=== PATIENT | male | born 1960 | race Caucasian/White ===

== ENCOUNTER → 2016-11-10 | Outpatient (CLI) | payer MEDICARE, OTHER ==
[~2016-11-10] MED LIST: ASPI81TA82 PO; AZIT250T74 PO; BUPR150T3 PO; CEFU1TAB43 PO; GLUCTAB PO; GUAI600 PO; HYDR-3129 PO; HYDR12.56 PO; HYDR50 PO; LISI-360 PO; METO25 PO; NEXI40CA PO; SIMV20 PO; TRAZ100 PO; ZIPR60CA PO; insulin
== END ==
LOC: CLAB 10:19
PROVIDERS: ATTEND Internal Medicine
DX: Z20.6 Contact with and (suspected) exposure to human immunodeficiency virus [HIV] (principal)
CPT/HCPCS: 36415; 86703

== ENCOUNTER → 2016-12-06 | Outpatient (CLI) | payer MEDICARE, OTHER ==
[2016-12-06 09:50] LABS: AUTOMATED NEUTROPHIL # 6.2 TH/MM3 (1.8-7.7); BASOPHIL % 0.2 % (0.0-2.0); EOSINOPHIL # 0.2 TH/MM3 (0-0.4); EOSINOPHIL % 2.7 % (0.0-4.0); HEMO FLAGS DIFF FINAL; LYMPH % 21.3 % (9.0-44.0); LYMPHOCYTE # 1.9 TH/MM3 (1.0-4.8); MEAN CORPUSCULAR HEMOGLOBIN 29.3 PG (27.0-34.0); MEAN CORPUSCULAR HGB CONC 33.6 % (32.0-36.0); MONO % 6.1 % (0.0-8.0); NEUT % 69.7 % (16.0-70.0); PLATELET COUNT 217 TH/MM3 (150-450); RED CELL DISTRIBUTION WIDTH 13.9 % (11.6-17.2); WHITE BLOOD COUNT 8.9 TH/MM3 (4.0-11.0)
[2016-12-06 09:54] LABS: BACTERIA, URINE RARE /hpf; BLOOD, URINE NEG (NEG); GLUCOSE,URINE NEG (NEG); KETONE, URINE NEG (NEG); MUCUS URINE FEW /lpf (OCC); NITRITE,URINE NEG (NEG); PH, URINE 6.5 (5.0-8.5); URINE COLOR YELLOW (YELLW/STRAW)
[2016-12-06 09:56] LABS: ANION GAP 9 MEQ/L (5-15); AST (GOT) 22 U/L (15-37); BICARBONATE 21.7 MEQ/L (21.0-32.0); BLOOD UREA NITROGEN 13 MG/DL (7-18); CHLORIDE 109 MEQ/L (98-107); GLOMERULAR FILTRATION RATE 50 ML/MIN (>89); GLUCOSE,FASTING 129 MG/DL (74-99); SODIUM (NA) 140 MEQ/L (136-145)
[2016-12-06 09:59] LABS: ALKALINE PHOSPHATASE 96 U/L (45-117); ALT (GPT) 38 U/L (12-78); HDL CHOLESTEROL 43.5 MG/DL (40.0-60.0); LDL CHOLESTEROL 115 MG/DL (0-99); TOTAL BILIRUBIN ADULT 0.4 MG/DL (0.2-1.0)
[2016-12-06 11:26] LABS: HEMOGLOBIN A1a 0.9 %; HEMOGLOBIN Ao 83.7 %; HEMOGLOBIN LA1C 2.3 %; HEMOGLOBIN P3 4.2 %
== END ==
LOC: CLAB 08:56
PROVIDERS: ATTEND Internal Medicine
DX: E11.8 Type 2 diabetes mellitus with unspecified complications (principal); E78.00 Pure hypercholesterolemia, unspecified; L97.909 Non-pressure chronic ulcer of unspecified part of unspecified lower leg with unspecified severity; Z12.5 Encounter for screening for malignant neoplasm of prostate
CPT/HCPCS: 36415; 80053; 80061; 81001; 83036; 85025; G0103

== ENCOUNTER → 2017-04-02 | Outpatient (CLI) | payer MEDICARE, OTHER ==
[2017-04-02 08:25] LABS: BLOOD, URINE NEG (NEG); GLUCOSE,URINE NEG (NEG); HYALINE CAST, URINE 1 /lpf (RARE); KETONE, URINE NEG (NEG); MUCUS URINE FEW /lpf (OCC); NITRITE,URINE NEG (NEG); PH, URINE 5.5 (5.0-8.5); URINE COLOR YELLOW (YELLW/STRAW)
[2017-04-02 08:35] LABS: ALKALINE PHOSPHATASE 99 U/L (45-117); ALT (GPT) 54 U/L (12-78); ANION GAP 10 MEQ/L (5-15); AST (GOT) 42 U/L (15-37); BICARBONATE 24.2 MEQ/L (21.0-32.0); BLOOD UREA NITROGEN 13 MG/DL (7-18); CHLORIDE 109 MEQ/L (98-107); GLOMERULAR FILTRATION RATE 56 ML/MIN (>89); GLUCOSE,FASTING 141 MG/DL (74-99); HDL CHOLESTEROL 26.7 MG/DL (40.0-60.0); LDL CHOLESTEROL 45 MG/DL (0-99); POTASSIUM 3.8 MEQ/L (3.5-5.1); SODIUM (NA) 143 MEQ/L (136-145); TOTAL BILIRUBIN ADULT 0.4 MG/DL (0.2-1.0)
[2017-04-03 16:08] LABS: HEMOGLOBIN A1a 1.4 %; HEMOGLOBIN A1b 2.2 %; HEMOGLOBIN Ao 82.6 %; HEMOGLOBIN LA1C 1.8 %; HEMOGLOBIN P3 4.2 %
== END ==
LOC: CLAB 07:10
PROVIDERS: ATTEND Internal Medicine
DX: E78.00 Pure hypercholesterolemia, unspecified (principal); E11.21 Type 2 diabetes mellitus with diabetic nephropathy
CPT/HCPCS: 36415; 80053; 80061; 81001; 83036

== ENCOUNTER → 2017-07-11 | Outpatient (CLI) | payer MEDICARE, OTHER ==
[2017-07-11 09:06] LABS: AUTOMATED NEUTROPHIL # 6.8 TH/MM3 (1.8-7.7); BASOPHIL % 0.3 % (0.0-2.0); EOSINOPHIL # 0.3 TH/MM3 (0-0.4); EOSINOPHIL % 2.6 % (0.0-4.0); HEMATOCRIT 42.3 % (39.0-51.0); HEMO FLAGS DIFF FINAL; LYMPH % 22.1 % (9.0-44.0); LYMPHOCYTE # 2.2 TH/MM3 (1.0-4.8); MEAN CORPUSCULAR HEMOGLOBIN 29.9 PG (27.0-34.0); MEAN CORPUSCULAR HGB CONC 33.6 % (32.0-36.0); MONO % 6.6 % (0.0-8.0); NEUT % 68.4 % (16.0-70.0); PLATELET COUNT 201 TH/MM3 (150-450); RED BLOOD COUNT 4.76 MIL/MM3 (4.50-5.90); RED CELL DISTRIBUTION WIDTH 13.8 % (11.6-17.2)
[2017-07-11 09:06] LABS: BLOOD, URINE NEG (NEG); GLUCOSE,URINE 1000 mg/dL (NEG); KETONE, URINE NEG (NEG); NITRITE,URINE NEG (NEG); PH, URINE 5.5 (5.0-8.5); URINE COLOR LIGHT-YELLOW (YELLW/STRAW)
[2017-07-11 09:08] LABS: COMMENT (UR) CULT NOT INDICATED; CULTURE IF INDICATED CULT NOT INDICATED
[2017-07-11 10:58] LABS: ALKALINE PHOSPHATASE 93 U/L (45-117); ALT (GPT) 27 U/L (12-78); HDL CHOLESTEROL 36.8 MG/DL (40.0-60.0); LDL CHOLESTEROL 78 MG/DL (0-99); TOTAL BILIRUBIN ADULT 0.7 MG/DL (0.2-1.0)
[2017-07-11 12:03] LABS: HEMOGLOBIN A1a 1.4 %; HEMOGLOBIN Ao 83.2 %; HEMOGLOBIN LA1C 2.1 %
[2017-07-11 12:32] LABS: BLOOD UREA NITROGEN 21 MG/DL (7-18); GLOMERULAR FILTRATION RATE 46 ML/MIN (>89); GLUCOSE,FASTING 116 MG/DL (74-99)
[2017-07-11 12:33] LABS: ANION GAP 7 MEQ/L (5-15); AST (GOT) 29 U/L (15-37); BICARBONATE 24.8 MEQ/L (21.0-32.0); CHLORIDE 106 MEQ/L (98-107); POTASSIUM 4.3 MEQ/L (3.5-5.1); SODIUM (NA) 138 MEQ/L (136-145)
== END ==
LOC: CLAB 08:14
PROVIDERS: ATTEND Internal Medicine
DX: I10 Essential (primary) hypertension (principal); E78.00 Pure hypercholesterolemia, unspecified; E11.21 Type 2 diabetes mellitus with diabetic nephropathy
CPT/HCPCS: 36415; 80053; 80061; 81001; 83036; 85025

== ENCOUNTER → 2017-09-19 | Outpatient (CLI) | payer MEDICARE, OTHER ==
[2017-09-19 09:09] LABS: AUTOMATED NEUTROPHIL # 6.6 TH/MM3 (1.8-7.7); BASOPHIL % 0.3 % (0.0-2.0); EOSINOPHIL # 0.3 TH/MM3 (0-0.4); EOSINOPHIL % 2.8 % (0.0-4.0); HEMATOCRIT 43.3 % (39.0-51.0); HEMO FLAGS DIFF FINAL; LYMPH % 22.6 % (9.0-44.0); LYMPHOCYTE # 2.2 TH/MM3 (1.0-4.8); MEAN CELL VOLUME 88.8 FL (80.0-100.0); MEAN CORPUSCULAR HEMOGLOBIN 30.2 PG (27.0-34.0); MONO % 6.7 % (0.0-8.0); NEUT % 67.6 % (16.0-70.0); PLATELET COUNT 220 TH/MM3 (150-450); RED BLOOD COUNT 4.87 MIL/MM3 (4.50-5.90); RED CELL DISTRIBUTION WIDTH 13.8 % (11.6-17.2); WHITE BLOOD COUNT 9.8 TH/MM3 (4.0-11.0)
[2017-09-19 09:23] LABS: ALT (GPT) 32 U/L (12-78); ANION GAP 9 MEQ/L (5-15); AST (GOT) 17 U/L (15-37); BICARBONATE 24.1 MEQ/L (21.0-32.0); BLOOD UREA NITROGEN 21 MG/DL (7-18); CHLORIDE 105 MEQ/L (98-107); GLOMERULAR FILTRATION RATE 44 ML/MIN (>89); GLUCOSE,FASTING 182 MG/DL (74-99); POTASSIUM 4.1 MEQ/L (3.5-5.1); SODIUM (NA) 138 MEQ/L (136-145)
[2017-09-19 09:37] LABS: ALKALINE PHOSPHATASE 103 U/L (45-117); HDL CHOLESTEROL 35.7 MG/DL (40.0-60.0); LDL CHOLESTEROL 65 MG/DL (0-99); TOTAL BILIRUBIN ADULT 0.5 MG/DL (0.2-1.0)
[2017-09-19 10:17] LABS: BLOOD, URINE NEG (NEG); GLUCOSE,URINE 1000 mg/dL (NEG); KETONE, URINE NEG (NEG); MUCUS URINE FEW /lpf (OCC); NITRITE,URINE NEG (NEG); URINE COLOR LIGHT-YELLOW (YELLW/STRAW)
[2017-09-19 12:12] LABS: HEMOGLOBIN A1a 1.3 %; HEMOGLOBIN A1b 2.2 %; HEMOGLOBIN Ao 81.4 %; HEMOGLOBIN LA1C 2.7 %; HEMOGLOBIN P3 4.6 %
== END ==
LOC: CLAB 07:55
PROVIDERS: ATTEND Internal Medicine
DX: I10 Essential (primary) hypertension (principal); E11.21 Type 2 diabetes mellitus with diabetic nephropathy; E78.00 Pure hypercholesterolemia, unspecified
CPT/HCPCS: 36415; 80053; 80061; 81001; 83036; 85025

== ENCOUNTER 2017-11-23 13:51 | Emergency (ER) | payer MEDICARE, OTHER ==
[~2017-11-23] VITALS: Ht 167.6 cm; Wt 100.0 kg
[2017-11-23] MEDS ORDERED: IOHEXOL 350 MG/ML 10 ML VIAL (for RAD DIAG) IVCONTRAST ONE (13:52)
[2017-11-23 13:53] VITALS: BP 176/103; PULSE 111; RESP 16; TEMP 98.4; O2SAT 97
[2017-11-23] MEDS ORDERED: SODIUM CHLOR 0.9% 1000 ML INJ 1,000 ML IV SCH (16:43)
[2017-11-23] MEDS ORDERED: MORPHINE SULFATE 2 MG/ML INJ IV PUSH ONE (16:45)
[2017-11-23] MEDS ORDERED: PANTOPRAZOLE SODIUM 40 MG VIAL IVP ONE (16:45)
[2017-11-23] MEDS ORDERED: ONDANSETRON HCL 4 MG/2 ML VIAL IVP ONE (16:45)
[2017-11-23] MEDS ORDERED: SODIUM CHLORIDE 0.9% FLUSH 10 ML FLUSH IV FLUSH PRN (16:45)
--- NOTE | 2017-11-23 16:47 | PD ---
HPI Chief Complaint: GI Complaint Time Seen by Provider: 16:33 Travel History International Travel<30 days: No Contact w/Intl Traveler<30days: No Traveled to known affect area: No History of Present Illness HPI 61-year-old male presents for evaluation of nausea, vomiting, abdominal pain, diarrhea. Symptoms started 3 days ago. He reports intermittent sharp pain in his left lower quadrant which radiates into the back. No obvious aggravating or alleviating factors. He reports nausea and one episode of vomiting. He reports multiple episodes of mucousy diarrhea on a daily basis. He reports that obvious bright red blood per rectum on one of the days however none since. He endorses chills and diaphoresis as well. He denies cough, congestion, sore throat, rash or recent travel. Denies any recent antibiotic use. He is not on any blood thinning medications. He reports that he had a colonoscopy 1 year ago with matrix inspector Dr. Sheikh which he believes was normal. His primary care physician is Dr. Saldivar. No other complaints at this time. PFSH Past Medical History Arthritis: No Asthma: Yes Blood Disorders: No Anxiety: Yes Depression: Yes Heart Rhythm Problems: No Cancer: No Cardiac Catheterization: No Cardiovascular Problems: Yes High Cholesterol: Yes Chest Pain: Yes Congestive Heart Failure: No COPD: No Cerebrovascular Accident: Yes (TIA ) Diabetes: Yes Diminished Hearing: No Endocrine: Yes GERD: Yes Glaucoma: Yes Genitourinary: Yes Headaches: No Hepatitis: No Hiatal Hernia: No Hypertension: Yes Immune Disorder: No Kidney Stones: No Musculoskeletal: Yes Neurologic: Yes Psychiatric: Yes Reproductive: No Respiratory: Yes Migraines: No Myocardial Infarction: No Renal Failure: No Seizures: Yes Sleep Apnea: No Thyroid Disease: No Ulcer: No Past Surgical History Abdominal Surgery: No AICD: No Appendectomy: No Arteriovenous Shunt: No Cardiac Surgery: No Cholecystectomy: No Coronary Artery Bypass Graft: No Ear Surgery: No Endocrine Surgery: No Eye Surgery: No Genitourinary Surgery: No Gynecologic Surgery: Yes (hernia repair) Insulin Pump: No Joint Replacement: No Oral Surgery: No Pacemaker: No Thoracic Surgery: No Social History Alcohol Use: Yes (SOCIAL) Tobacco Use: No Substance Use: No Allergies-Medications (Allergen,Severity, Reaction): Coded Allergies: No Known Allergies (Verified , 10/11/15) Reported Meds & Prescriptions Reported Meds & Active Scripts Active Zofran Odt (Ondansetron Odt) 4 Mg Tab 4 Mg SL Q6HR PRN Mucinex 600 Mg Tab (Guaifenesin) 600 Mg Tabcr 600 Mg PO BID 14 Days Zithromax (Azithromycin) 250 Mg Tab 500 Mg PO DAILY 5 Days Ceftin 500 Mg Tab (Cefuroxime Axetil) 500 Mg Tab 500 Mg PO Q12HR 5 Days Vistaril (Hydroxyzine Pamoate) 50 Mg Cap 50 Mg PO Q6H Reported [insulin] [place] 10-325 mg (Hydrocodone-Acetaminophen 10-325 mg) 10 Mg/325 Mg Tab 1 Tab PO BID PRN Hydrochlorothiazide (Miscellaneous Medication) 12.5 Mg Cap 12.5 Mg PO DAILY Ziprasidone Hcl 60 Mg Cap 60 Mg PO HS Metoprolol Tartrate 25 mg (Metoprolol Tartrate) 25 Mg Tab 25 Mg PO BID Aspir-81 (Aspirin) 81 Mg Tab 81 Mg PO DAILY Glucophage XR 24 HR (Metformin HCl) 500 Mg Tab 500 Mg PO BID Trazodone HCl 100 Mg Tab 100 Mg PO DAILY Bupropion Hcl Xl (Bupropion HCl) 150 Mg Tab 300 Mg PO DAILY Zocor (Simvastatin) 20 Mg Tab 20 Mg PO HS Nexium (Esomeprazole Magnesium) 40 Mg Cap 40 Mg PO DAILY Lisinopril 10 mg (Lisinopril) 10 Mg Tab 10 Mg PO BID Review of Systems Except as stated in HPI: all other systems reviewed are Neg Physical Exam Narrative GENERAL: Well-developed well-nourished male in no acute distress SKIN: Warm and dry. HEAD: Atraumatic. Normocephalic. EYES: Pupils equal and round. No scleral icterus. No injection or drainage. ENT: No nasal bleeding or discharge. Mucous membranes pink and moist. NECK: Trachea midline. No JVD. CARDIOVASCULAR: Regular rate and rhythm. No murmur appreciated. RESPIRATORY: No accessory muscle use. Clear to auscultation. Breath sounds equal bilaterally. GASTROINTESTINAL: Abdomen soft, focal left lower quadrant and left periumbilical tenderness to palpation without guarding. There is no CVA tenderness. Rectal examination Hemoccult negative however there is no obvious stool in the rectal vault. MUSCULOSKELETAL: No obvious deformities. No clubbing. No cyanosis. No edema. NEUROLOGICAL: Awake and alert. No obvious cranial nerve deficits. Motor grossly within normal limits. Normal speech. Data Data Last Documented VS Vital Signs Date Time Temp Pulse Resp B/P (MAP) Pulse Ox O2 Delivery O2 Flow Rate FiO2 11/23/17 21:59 11/23/17 19:32 20 11/23/17 17:23 98 98 Room Air 11/23/17 13:53 98.4 Orders Orders Complete Blood Count With Diff (11/23/17 16:43) Comprehensive Metabolic Panel (11/23/17 16:43) Lipase (11/23/17 16:43) Urinalysis - C+S If Indicated (11/23/17 16:43) Ct Abd/Pel W Iv Contrast(Rout) (11/23/17 16:43) Iv Access Insert/Monitor (11/23/17 16:43) Ecg Monitoring (11/23/17 16:43) Oximetry (11/23/17 16:43) Ondansetron Inj (Zofran Inj) (11/23/17 16:45) Sodium Chlor 0.9% 1000 Ml Inj (Ns 1000 M (11/23/17 16:43) Sodium Chloride 0.9% Flush (Ns Flush) (11/23/17 16:45) Pantoprazole Inj (Protonix Inj) (11/23/17 16:45) Morphine Inj (Morphine Inj) (11/23/17 16:45) Iohexol 350 Inj (Omnipaque 350 Inj) (11/23/17 13:52) Ed Discharge Order (11/23/17 21:27) Labs Laboratory Tests Test 11/23/17 16:52 11/23/17 17:50 11/23/17 19:23 White Blood Count 14.1 TH/MM3 Red Blood Count 5.02 MIL/MM3 Hemoglobin 14.8 GM/DL Hematocrit 43.8 % Mean Corpuscular Volume 87.1 FL Mean Corpuscular Hemoglobin 29.4 PG Mean Corpuscular Hemoglobin Concent 33.8 % Red Cell Distribution Width 14.1 % Platelet Count 280 TH/MM3 Mean Platelet Volume 8.7 FL Neutrophils (%) (Auto) 72.8 % Lymphocytes (%) (Auto) 14.3 % Monocytes (%) (Auto) 11.0 % Eosinophils (%) (Auto) 1.7 % Basophils (%) (Auto) 0.2 % Neutrophils # (Auto) 10.3 TH/MM3 Lymphocytes # (Auto) 2.0 TH/MM3 Monocytes # (Auto) 1.6 TH/MM3 Eosinophils # (Auto) 0.2 TH/MM3 Basophils # (Auto) 0.0 TH/MM3 CBC Comment DIFF FINAL Differential Comment Urine Color YELLOW Urine Turbidity CLEAR Urine pH 5.5 Urine Specific [place] 1.024 Urine Protein TRACE mg/dL Urine Glucose (UA) NEG mg/dL Urine Ketones TRACE mg/dL Urine Occult Blood NEG Urine Nitrite NEG Urine Bilirubin NEG Urine Urobilinogen LESS THAN 2.0 MG/DL Urine Leukocyte Esterase NEG Urine WBC 5 /hpf Urine Hyaline Casts 1 /lpf Urine Mucus FEW /lpf Microscopic Urinalysis Comment CULT NOT INDICATED Blood Urea Nitrogen 15 MG/DL Creatinine 1.20 MG/DL Random Glucose 109 MG/DL Total Protein 6.9 GM/DL Albumin 3.4 GM/DL Calcium Level 8.4 MG/DL Alkaline Phosphatase 92 U/L Aspartate Amino Transf (AST/SGOT) 15 U/L Alanine Aminotransferase (ALT/SGPT) 22 U/L Total Bilirubin 0.6 MG/DL Sodium Level 138 MEQ/L Potassium Level 3.7 MEQ/L Chloride Level 104 MEQ/L Carbon Dioxide Level 26.0 MEQ/L Anion Gap 8 MEQ/L Estimat Glomerular Filtration Rate 63 ML/MIN Lipase 411 U/L MDM Medical Decision Making Medical Screen Exam Complete: Yes Emergency Medical Condition: Yes Medical Record Reviewed: Yes Differential Diagnosis Diverticulitis, colitis, gastroenteritis, ureteral stone, gastritis, mesenteric ischemia Narrative Course 57-year-old male with 3 days of left lower quadrant abdominal pain, chills and diaphoresis, nausea, diarrhea. The patient was given symptomatic treatment, lab work, CT imaging was ordered. At the end of my shift the patient was signed out pending CT imaging. Scripts Ondansetron Odt (Zofran Odt) 4 Mg Tab 4 MG SL Q6HR Y for Nausea/Vomiting, #15 TAB 0 Refills Prov: Caren Anaya 11/23/17 Sunil Obrien Nov 23, 2017 16:47
[2017-11-23 17:21] LABS: AUTOMATED NEUTROPHIL # 10.3 TH/MM3 (1.8-7.7); BASOPHIL % 0.2 % (0.0-2.0); EOSINOPHIL # 0.2 TH/MM3 (0-0.4); EOSINOPHIL % 1.7 % (0.0-4.0); HEMATOCRIT 43.8 % (39.0-51.0); HEMOGLOBIN 14.8 GM/DL (13.0-17.0); LYMPH % 14.3 % (9.0-44.0); MEAN CELL VOLUME 87.1 FL (80.0-100.0); MEAN CORPUSCULAR HEMOGLOBIN 29.4 PG (27.0-34.0); MEAN CORPUSCULAR HGB CONC 33.8 % (32.0-36.0); MEAN PLATELET VOLUME 8.7 FL (7.0-11.0); MONOCYTE # 1.6 TH/MM3 (0-0.9); NEUT % 72.8 % (16.0-70.0); PLATELET COUNT 280 TH/MM3 (150-450); RED BLOOD COUNT 5.02 MIL/MM3 (4.50-5.90); RED CELL DISTRIBUTION WIDTH 14.1 % (11.6-17.2); WHITE BLOOD COUNT 14.1 TH/MM3 (4.0-11.0)
[2017-11-23 17:23] VITALS: PULSE 98; RESP 16; O2SAT 98
[2017-11-23 18:13] LABS: BILIRUBIN, URINE NEG (NEG); BLOOD, URINE NEG (NEG); GLUCOSE,URINE NEG (NEG); HYALINE CAST, URINE 1 /lpf (RARE); KETONE, URINE TRACE mg/dL (NEG); MUCUS URINE FEW /lpf (OCC); NITRITE,URINE NEG (NEG); PH, URINE 5.5 (5.0-8.5); URINE COLOR YELLOW (YELLW/STRAW); URINE LEUKOCYTE ESTERASE NEG (NEG)
[2017-11-23 19:32] VITALS: RESP 20
[2017-11-23 20:40] LABS: ALBUMIN 3.4 GM/DL (3.4-5.0); ALT (GPT) 22 U/L (12-78); AST (GOT) 15 U/L (15-37); BLOOD UREA NITROGEN 15 MG/DL (7-18); CALCIUM 8.4 MG/DL (8.5-10.1); CHLORIDE 104 MEQ/L (98-107); GLOMERULAR FILTRATION RATE 63 ML/MIN (>89); GLUCOSE,RANDOM 109 MG/DL (74-106); SODIUM (NA) 138 MEQ/L (136-145)
[2017-11-23 20:43] LABS: ALKALINE PHOSPHATASE 92 U/L (45-117); TOTAL BILIRUBIN ADULT 0.6 MG/DL (0.2-1.0); TOTAL PROTEIN 6.9 GM/DL (6.4-8.2)
--- NOTE | 2017-11-23 21:11 | RADRPT ---
EXAM DATE/TIME: 11/23/2017 20:55 [facility] COMPARISON: CT ABDOMEN & PELVIS W CONTRAST, January 21, 2012, 19:28. INDICATIONS : Patient complains of left abdominal pain with nausea and vomiting. IV CONTRAST: 90 cc Omnipaque 350 (iohexol) IV ORAL CONTRAST: No oral contrast ingested. RADIATION DOSE: 16.67 CTDIvol (mGy) MEDICAL HISTORY : Cardiovascular disease. Cerebrovascular disease. Hypertension.reflux,diabetic SURGICAL HISTORY : hernia repair ENCOUNTER: Initial ACUITY: 3 days PAIN SCALE: 4/10 LOCATION: Left abdomen TECHNIQUE: Volumetric scanning of the abdomen and pelvis was performed. Using automated exposure control and ad justment of the mA and/or kV according to patient size, radiation dose was kept as low as reasonably achievable to obtain optimal diagnostic quality images. DICOM format image data is available electro nically for review and comparison. FINDINGS: LOWER LUNGS: The visualized lower lungs are clear. LIVER: Homogeneous density without lesion. There is no dilation of the biliary tree. No calcified [place]ston es. SPLEEN: Normal size without lesion. PANCREAS: Within normal limits. KIDNEYS: Normal in size and shape. There is no mass, stone or hydronephrosis. ADRENAL GLANDS: Within normal limits. VASCULAR: There is no aortic aneurysm. BOWEL/MESENTERY: The stomach, small bowel, and colon demonstrate no acute abnormality. There is no free intraperitone al air or fluid. No inflammatory changes ABDOMINAL WALL: Within normal limits. RETROPERITONEUM: There is no lymphadenopathy. BLADDER: No wall thickening or mass. REPRODUCTIVE: Within normal limits. INGUINAL: There is no lymphadenopathy or hernia. MUSCULOSKELETAL: Stable left-sided rib fractures. Mild degenerative changes. No new or significant changes compared to the prior examination. CONCLUSION: Stable and unremarkable CT abdomen/pelvis compared to 2011. Kishan Mayer MD on November 23, 2017 at 21:06 Board Certified Radiologist. This report was verified electronically.
[2017-11-23] MEDS ORDERED: ZOFR4TAB3 SL (21:26)
--- NOTE | 2017-11-23 21:27 | PD ---
Physical Exam Date Seen by Provider: Nov 23, 2017 Time Seen by Provider: 21:22 Narrative For full history and physical examination please see previous providers note. I assumed care of this patient change his shift, at that time chemistry and CT of the abdomen and pelvis are pending. Data Data Last Documented VS Vital Signs Date Time Temp Pulse Resp B/P (MAP) Pulse Ox O2 Delivery O2 Flow Rate FiO2 11/23/17 19:32 20 11/23/17 17:23 98 98 Room Air 11/23/17 13:53 98.4 Orders Orders Complete Blood Count With Diff (11/23/17 16:43) Comprehensive Metabolic Panel (11/23/17 16:43) Lipase (11/23/17 16:43) Urinalysis - C+S If Indicated (11/23/17 16:43) Ct Abd/Pel W Iv Contrast(Rout) (11/23/17 16:43) Iv Access Insert/Monitor (11/23/17 16:43) Ecg Monitoring (11/23/17 16:43) Oximetry (11/23/17 16:43) Ondansetron Inj (Zofran Inj) (11/23/17 16:45) Sodium Chlor 0.9% 1000 Ml Inj (Ns 1000 M (11/23/17 16:43) Sodium Chloride 0.9% Flush (Ns Flush) (11/23/17 16:45) Pantoprazole Inj (Protonix Inj) (11/23/17 16:45) Morphine Inj (Morphine Inj) (11/23/17 16:45) Iohexol 350 Inj (Omnipaque 350 Inj) (11/23/17 13:52) Labs Laboratory Tests Test 11/23/17 16:52 11/23/17 17:50 11/23/17 19:23 White Blood Count 14.1 TH/MM3 Red Blood Count 5.02 MIL/MM3 Hemoglobin 14.8 GM/DL Hematocrit 43.8 % Mean Corpuscular Volume 87.1 FL Mean Corpuscular Hemoglobin 29.4 PG Mean Corpuscular Hemoglobin Concent 33.8 % Red Cell Distribution Width 14.1 % Platelet Count 280 TH/MM3 Mean Platelet Volume 8.7 FL Neutrophils (%) (Auto) 72.8 % Lymphocytes (%) (Auto) 14.3 % Monocytes (%) (Auto) 11.0 % Eosinophils (%) (Auto) 1.7 % Basophils (%) (Auto) 0.2 % Neutrophils # (Auto) 10.3 TH/MM3 Lymphocytes # (Auto) 2.0 TH/MM3 Monocytes # (Auto) 1.6 TH/MM3 Eosinophils # (Auto) 0.2 TH/MM3 Basophils # (Auto) 0.0 TH/MM3 CBC Comment DIFF FINAL Differential Comment Urine Color YELLOW Urine Turbidity CLEAR Urine pH 5.5 Urine Specific [place] 1.024 Urine Protein TRACE mg/dL Urine Glucose (UA) NEG mg/dL Urine Ketones TRACE mg/dL Urine Occult Blood NEG Urine Nitrite NEG Urine Bilirubin NEG Urine Urobilinogen LESS THAN 2.0 MG/DL Urine Leukocyte Esterase NEG Urine WBC 5 /hpf Urine Hyaline Casts 1 /lpf Urine Mucus FEW /lpf Microscopic Urinalysis Comment CULT NOT INDICATED Blood Urea Nitrogen 15 MG/DL Creatinine 1.20 MG/DL Random Glucose 109 MG/DL Total Protein 6.9 GM/DL Albumin 3.4 GM/DL Calcium Level 8.4 MG/DL Alkaline Phosphatase 92 U/L Aspartate Amino Transf (AST/SGOT) 15 U/L Alanine Aminotransferase (ALT/SGPT) 22 U/L Total Bilirubin 0.6 MG/DL Sodium Level 138 MEQ/L Potassium Level 3.7 MEQ/L Chloride Level 104 MEQ/L Carbon Dioxide Level 26.0 MEQ/L Anion Gap 8 MEQ/L Estimat Glomerular Filtration Rate 63 ML/MIN Lipase 411 U/L [facility] Medical Record Reviewed: Yes Supervised Visit with CHRISTINA: No Interpretation(s) Laboratory Tests Test 11/23/17 16:52 11/23/17 17:50 11/23/17 19:23 White Blood Count 14.1 TH/MM3 Red Blood Count 5.02 MIL/MM3 Hemoglobin 14.8 GM/DL Hematocrit 43.8 % Mean Corpuscular Volume 87.1 FL Mean Corpuscular Hemoglobin 29.4 PG Mean Corpuscular Hemoglobin Concent 33.8 % Red Cell Distribution Width 14.1 % Platelet Count 280 TH/MM3 Mean Platelet Volume 8.7 FL Neutrophils (%) (Auto) 72.8 % Lymphocytes (%) (Auto) 14.3 % Monocytes (%) (Auto) 11.0 % Eosinophils (%) (Auto) 1.7 % Basophils (%) (Auto) 0.2 % Neutrophils # (Auto) 10.3 TH/MM3 Lymphocytes # (Auto) 2.0 TH/MM3 Monocytes # (Auto) 1.6 TH/MM3 Eosinophils # (Auto) 0.2 TH/MM3 Basophils # (Auto) 0.0 TH/MM3 CBC Comment DIFF FINAL Differential Comment Urine Color YELLOW Urine Turbidity CLEAR Urine pH 5.5 Urine Specific [place] 1.024 Urine Protein TRACE mg/dL Urine Glucose (UA) NEG mg/dL Urine Ketones TRACE mg/dL Urine Occult Blood NEG Urine Nitrite NEG Urine Bilirubin NEG Urine Urobilinogen LESS THAN 2.0 MG/DL Urine Leukocyte Esterase NEG Urine WBC 5 /hpf Urine Hyaline Casts 1 /lpf Urine Mucus FEW /lpf Microscopic Urinalysis Comment CULT NOT INDICATED Blood Urea Nitrogen 15 MG/DL Creatinine 1.20 MG/DL Random Glucose 109 MG/DL Total Protein 6.9 GM/DL Albumin 3.4 GM/DL Calcium Level 8.4 MG/DL Alkaline Phosphatase 92 U/L Aspartate Amino Transf (AST/SGOT) 15 U/L Alanine Aminotransferase (ALT/SGPT) 22 U/L Total Bilirubin 0.6 MG/DL Sodium Level 138 MEQ/L Potassium Level 3.7 MEQ/L Chloride Level 104 MEQ/L Carbon Dioxide Level 26.0 MEQ/L Anion Gap 8 MEQ/L Estimat Glomerular Filtration Rate 63 ML/MIN Lipase 411 U/L Vital Signs Date Time Temp Pulse Resp B/P (MAP) Pulse Ox O2 Delivery O2 Flow Rate FiO2 11/23/17 19:32 20 11/23/17 17:23 98 16 98 Room Air 11/23/17 13:53 98.4 111 16 176/103 (127) 97 Differential Diagnosis Laboratory Tests Test 11/23/17 16:52 11/23/17 17:50 11/23/17 19:23 White Blood Count 14.1 TH/MM3 Red Blood Count 5.02 MIL/MM3 Hemoglobin 14.8 GM/DL Hematocrit 43.8 % Mean Corpuscular Volume 87.1 FL Mean Corpuscular Hemoglobin 29.4 PG Mean Corpuscular Hemoglobin Concent 33.8 % Red Cell Distribution Width 14.1 % Platelet Count 280 TH/MM3 Mean Platelet Volume 8.7 FL Neutrophils (%) (Auto) 72.8 % Lymphocytes (%) (Auto) 14.3 % Monocytes (%) (Auto) 11.0 % Eosinophils (%) (Auto) 1.7 % Basophils (%) (Auto) 0.2 % Neutrophils # (Auto) 10.3 TH/MM3 Lymphocytes # (Auto) 2.0 TH/MM3 Monocytes # (Auto) 1.6 TH/MM3 Eosinophils # (Auto) 0.2 TH/MM3 Basophils # (Auto) 0.0 TH/MM3 CBC Comment DIFF FINAL Differential Comment Urine Color YELLOW Urine Turbidity CLEAR Urine pH 5.5 Urine Specific [place] 1.024 Urine Protein TRACE mg/dL Urine Glucose (UA) NEG mg/dL Urine Ketones TRACE mg/dL Urine Occult Blood NEG Urine Nitrite NEG Urine Bilirubin NEG Urine Urobilinogen LESS THAN 2.0 MG/DL Urine Leukocyte Esterase NEG Urine WBC 5 /hpf Urine Hyaline Casts 1 /lpf Urine Mucus FEW /lpf Microscopic Urinalysis Comment CULT NOT INDICATED Blood Urea Nitrogen 15 MG/DL Creatinine 1.20 MG/DL Random Glucose 109 MG/DL Total Protein 6.9 GM/DL Albumin 3.4 GM/DL Calcium Level 8.4 MG/DL Alkaline Phosphatase 92 U/L Aspartate Amino Transf (AST/SGOT) 15 U/L Alanine Aminotransferase (ALT/SGPT) 22 U/L Total Bilirubin 0.6 MG/DL Sodium Level 138 MEQ/L Potassium Level 3.7 MEQ/L Chloride Level 104 MEQ/L Carbon Dioxide Level 26.0 MEQ/L Anion Gap 8 MEQ/L Estimat Glomerular Filtration Rate 63 ML/MIN Lipase 411 U/L Vital Signs Date Time Temp Pulse Resp B/P (MAP) Pulse Ox O2 Delivery O2 Flow Rate FiO2 11/23/17 19:32 20 11/23/17 17:23 98 16 98 Room Air 11/23/17 13:53 98.4 111 16 176/103 (127) 97 Narrative Course Patient is a 57-year-old male that presented to the emergency department for evaluation of GI symptoms. Patient is well appearing, he is resting comfortably on my exam. CT scan of the abdomen and pelvis which was read by the radiologist shows no acute abnormality. CBC with a slightly elevated WBCs at 14.1 likely stress related secondary to vomiting. Chemistry with no acute abnormalities. Lipase is 411. Urinalysis unremarkable. Patient is resting comfortably, he has no complaints. Symptoms are likely related to a gastroenteritis, patient will be discharged home with oral Zofran. He is encouraged to maintain a bland, low-residue diet, increasing as tolerated. He was encouraged to increase oral fluid intake. He was advised to follow-up with her primary doctor or return to emergency department immediately for any new or worsening symptoms. Patient verbalized understanding of these instructions. Patient stable for discharge. Diagnosis Primary Impression: Gastroenteritis Referrals: Primary Care Physician Patient Instructions: Diet for Stomach Ulcers and Gastritis (ED), Gastroenteritis (ED), General Instructions Additional Instruction: Maintain a bland, easy to digest diet, increasing as tolerated Maintain adequate fluid intake Take medications as needed and as directed Follow-up with your primary doctor Return to emergency department for any new worsening symptoms Med/Other Pt SpecificInfo: Prescription(s) given Scripts Ondansetron Odt (Zofran Odt) 4 Mg Tab 4 MG SL Q6HR Y for Nausea/Vomiting, #15 TAB 0 Refills Prov: Caren Anaya 11/23/17 Disposition: 01 DISCHARGE HOME Condition: Stable Caren Anaya Nov 23, 2017 21:27
== END 2017-11-23 22:00 | disposition home or self-care (01) ==
LOC: NEPD 13:51
DX: K52.9 Noninfective gastroenteritis and colitis, unspecified (principal); J45.909 Unspecified asthma, uncomplicated; F41.9 Anxiety disorder, unspecified; F32.9 Major depressive disorder, single episode, unspecified; E78.00 Pure hypercholesterolemia, unspecified; E11.9 Type 2 diabetes mellitus without complications; K21.9 Gastro-esophageal reflux disease without esophagitis; I10 Essential (primary) hypertension; Z87.820 Personal history of traumatic brain injury
CPT/HCPCS: 74177; 80053; 81001; 83690; 85025; 96361; 96374; 96375; 99285; C9113; J2270; J2405; J7030; Q9967

== ENCOUNTER → 2018-01-17 | Outpatient (CLI) | payer MEDICARE, OTHER ==
[~2018-01-17] MED LIST changes: +ZOFR4TAB3 SL
[2018-01-17 10:14] LABS: AUTOMATED NEUTROPHIL # 6.4 TH/MM3 (1.8-7.7); BASOPHIL % 0.3 % (0.0-2.0); EOSINOPHIL # 0.2 TH/MM3 (0-0.4); EOSINOPHIL % 1.8 % (0.0-4.0); HEMATOCRIT 39.1 % (39.0-51.0); HEMOGLOBIN 13.3 GM/DL (13.0-17.0); LYMPH % 22.6 % (9.0-44.0); LYMPHOCYTE # 2.1 TH/MM3 (1.0-4.8); MEAN CELL VOLUME 87.5 FL (80.0-100.0); MEAN CORPUSCULAR HEMOGLOBIN 29.8 PG (27.0-34.0); MEAN CORPUSCULAR HGB CONC 34.1 % (32.0-36.0); MEAN PLATELET VOLUME 8.2 FL (7.0-11.0); MONO % 6.5 % (0.0-8.0); MONOCYTE # 0.6 TH/MM3 (0-0.9); NEUT % 68.8 % (16.0-70.0); PLATELET COUNT 213 TH/MM3 (150-450); RED BLOOD COUNT 4.47 MIL/MM3 (4.50-5.90); RED CELL DISTRIBUTION WIDTH 13.5 % (11.6-17.2); WHITE BLOOD COUNT 9.3 TH/MM3 (4.0-11.0)
[2018-01-17 10:33] LABS: BILIRUBIN, URINE NEG (NEG); BLOOD, URINE NEG (NEG); GLUCOSE,URINE NEG (NEG); KETONE, URINE NEG (NEG); NITRITE,URINE NEG (NEG); SPERM, URINE RARE; URINE COLOR YELLOW (YELLW/STRAW); URINE LEUKOCYTE ESTERASE NEG (NEG)
[2018-01-17 10:35] LABS: ALBUMIN 3.5 GM/DL (3.4-5.0); ALT (GPT) 25 U/L (12-78); AST (GOT) 17 U/L (15-37); BICARBONATE 28.1 MEQ/L (21.0-32.0); BLOOD UREA NITROGEN 21 MG/DL (7-18); CALCIUM 8.6 MG/DL (8.5-10.1); CHLORIDE 106 MEQ/L (98-107); CHOLESTEROL 170 MG/DL (120-200); CREATININE 1.47 MG/DL (0.60-1.30); GLOMERULAR FILTRATION RATE 50 ML/MIN (>89); GLUCOSE,FASTING 171 MG/DL (74-99); SODIUM (NA) 141 MEQ/L (136-145)
[2018-01-17 10:38] LABS: ALKALINE PHOSPHATASE 82 U/L (45-117); CHOLESTEROL/ HDL RATIO 5.37 RATIO; HDL CHOLESTEROL 31.6 MG/DL (40.0-60.0); LDL CHOLESTEROL 97 MG/DL (0-99); TOTAL BILIRUBIN ADULT 0.6 MG/DL (0.2-1.0); TOTAL PROTEIN 7.3 GM/DL (6.4-8.2); TRIGLYCERIDES 208 MG/DL (42-150)
[2018-01-17 17:49] LABS: HEMOGLOBIN A1C 9.7 % (4.3-6.0)
== END ==
LOC: CLAB 09:39
PROVIDERS: ATTEND Internal Medicine
DX: I10 Essential (primary) hypertension (principal); E11.21 Type 2 diabetes mellitus with diabetic nephropathy; E78.00 Pure hypercholesterolemia, unspecified
CPT/HCPCS: 36415; 80053; 80061; 81001; 83036; 85025